=== PATIENT | female | born 1945 | race Caucasian/White ===

== ENCOUNTER 2017-08-14 14:02 | Outpatient (CLI) | payer MEDICARE, OTHER ==
[2017-08-14 14:41] LABS: #Basophils 0.1 thou/uL (0.0-0.2); #Eosinphils 0.3 thou/uL (0.0-0.7); #Lymphocytes 1.6 thou/uL (1.20-3.40); #Monocytes 0.6 thou/uL (0.11-0.59); #Neutrophils 5.4 thou/uL (1.40-6.50); %Basophils 0.8 % (0.0-1.0); %Eosinophils 4.2 % (0.0-10.0); %Lymphocytes 19.7 % (21.0-51.0); %Monocytes 6.9 % (0.0-10.0); Hematocrit 42.7 % (36.0-47.0); Mean Platelet Volume 6.6 fL (7.4-10.4); Red Blood Cell (RBC) Count 4.58 mill/uL (4.20-5.40); White Blood Cell (WBC) Count 7.9 thou/uL (4.8-10.8)
[2017-08-14 15:16] LABS: Anion Gap 11 mmol/L (10-20); BUN (Urea Nitrogen) 21 mg/dL (9.8-20.1); Calc. Creatinine Clearance 0 mL/min (70-130); Calcium 9.7 mg/dL (7.8-10.44); Carbon Dioxide 29 mmol/L (23-31); Chloride 105 mmol/L (98-107); Estimated GFR-MDRD 62
--- NOTE | 2017-08-29 13:30 | EKG ---
Test Reason : Blood Pressure : / mmHG Vent. Rate : 085 BPM Atrial Rate : 085 BPM P-R Int : 138 ms QRS Dur : 108 ms QT Int : 386 ms P-R-T Axes : 073 -02 081 degrees QTc Int : 459 ms Normal sinus rhythm Left ventricular hypertrophy with repolarization abnormality Cannot rule out Septal infarct , age undetermined Abnormal ECG Confirmed by TRICIA NOE MD ([id number]) on 08/29/2017 1:30:23 PM Referred By: STEMI Confirmed By:TRICIA NOE MD
== END 2017-08-14 14:03 | disposition home or self-care (01) ==
LOC: LABBT 14:02
PROVIDERS: ATTEND Specialist
DX: Z01.818 Encounter for other preprocedural examination (principal); A63.0 Anogenital (venereal) warts
CPT/HCPCS: 80048; 85025; 93005; 93010

== ENCOUNTER 2017-08-21 09:56 | Day surgery (SDC) | payer MEDICARE, OTHER ==
[2017-08-14 14:32] VITALS: BMI 37.1
[2017-08-21] MEDS ORDERED: cefOXitin Sodium 2 GM, Syringe 1 ML in Sterile Water 10 ML SLOW IVP SCH (10:45)
[2017-08-21] MEDS ORDERED: Acetaminophen 1,000 MG in Premix Bag 1 BAG IVPB SCH (10:45)
[2017-08-21] MEDS ORDERED: Ketorolac Tromethamine 30 MG/ML VIAL IVP SCH (10:45)
[2017-08-21] MEDS ORDERED: Ketorolac Tromethamine 30 MG/ML VIAL ONE (11:03)
[2017-08-21] MEDS ORDERED: Lidocaine 1% w/Epinephrine 1:200K 30 ML VIAL ONE (12:20)
[2017-08-21] MEDS ORDERED: Bupivacaine 0.25% HCL 30 ML VIAL ONE (12:20)
[2017-08-21] MEDS ORDERED: Midazolam HCl 2 mg/2 ml Vial ONE (12:28)
[2017-08-21] MEDS ORDERED: Fentanyl 100 MCG/2 ML VIAL ONE (12:28)
[2017-08-21] MEDS ORDERED: EPINEPHrine 1 MG/ML AMP ONE (12:56)
[2017-08-21] MEDS ORDERED: Lidocaine 1% PF 5 ML VIAL ONE (17:10)
[2017-08-21] MEDS ORDERED: Propofol 200 MG/20 ML VIAL ONE (17:10)
[2017-08-21] MEDS ORDERED: ePHEDrine/0.9% NaCl/PF SYRINGE 50 mg/10 ml ONE (17:10)
[2017-08-21] MEDS ORDERED: Ondansetron HCl/PF 4 MG/2 ML Vial ONE (17:10)
[2017-08-21] MEDS ORDERED: Dexamethasone 20 MG/5 ML VIAL ONE (17:10)
--- NOTE | 2017-08-22 03:58 | OP ---
DATE OF OPERATION: 08/21/2017 PREOPERATIVE DIAGNOSIS: Anal condyloma. POSTOPERATIVE DIAGNOSIS: Anal condyloma. PROCEDURE PERFORMED: Excision of anal condyloma. SURGEON: Sy Cantu M.D. ANESTHESIA: General with laryngeal mask airway. INDICATIONS: Patient is a 71-year-old white female. She presents with a large sessile mass to the r ight side of her anus. Biopsies of this revealed that is condyloma, although it certainly appears to be atypical. She is taken to the operating room at this time for resection of this area. DESCRIPTION OF OPERATION: Informed consent was obtained. Patient was taken to the operating room wh ere general anesthesia was obtained with the patient in supine position. She was then placed in cand y cane stirrups. Perianal area was prepped with Betadine, draped in sterile fashion. Local anesthet ic was infiltrated using 0.25% Marcaine with epinephrine. The easily visible lesion was excised usin g sharp dissection obtaining minimal borders around the lesion. Unfortunately, I had a very wide bas e encompassing a good segment of the right side of the anus. There was an area that seemed to extend also around the anterior aspect of the anus and this was included in the resection. The specimen wa s passed off the field and intact. Hemostasis was obtained using electrocautery. I then closed the wound in a somewhat stellate fashion using interrupted and running sutures of 3-0 Vicryl. The wound was closed as well as possible, although this was challenging due to the size and confirmation of the lesion. Dry gauze dressing was placed externally. Mesh pants were placed. There were no complicat ions. Patient tolerated the procedure well and was taken to recovery room in stable condition. Of n ote, due to the presence of condyloma, the smoke evacuator was used at all times when cautery was use dFilemon
== END 2017-08-21 16:01 | disposition home or self-care (01) ==
LOC: SDC 09:56
PROVIDERS: ATTEND Specialist
PROC: 0HBAXZZ Excision of Inguinal Skin, External Approach (ICD-10-PCS; principal; 2017-08-21)
DX: D01.3 Carcinoma in situ of anus and anal canal (principal); A63.0 Anogenital (venereal) warts; D49.3 Neoplasm of unspecified behavior of breast; I10 Essential (primary) hypertension; E66.9 Obesity, unspecified; Z68.37 Body mass index [BMI] 37.0-37.9, adult; Z79.899 Other long term (current) drug therapy; Z88.0 Allergy status to penicillin; Z88.2 Allergy status to sulfonamides; Z88.1 Allergy status to other antibiotic agents; Z90.710 Acquired absence of both cervix and uterus; Z98.890 Other specified postprocedural states; Z87.891 Personal history of nicotine dependence; Z92.3 Personal history of irradiation; Z92.21 Personal history of antineoplastic chemotherapy
CPT/HCPCS: 88305; A4216; J0131; J0171; J0694; J1100; J1885; J2001; J2250; J2405; J2704; J3010; S0020

== ENCOUNTER 2018-02-10 15:26 | Outpatient (CLI) | payer MEDICARE, OTHER ==
[~2018-02-10 15:26] MED LIST: Iopamidol 370 76% 100 ML VIAL ONE
--- NOTE | 2018-02-10 16:32 | CT ---
CT PELVIS WITH IV CONTRAST 02/10/18 HISTORY: Right inguinal mass. FINDINGS: Urinary bladder is unremarkable. Degenerative changes lumbar spine. No free fluid is apparent within the pelvis. Along the right inguinal canal, a predominantly cystic peripherally enhancing mass is 4.2 cm length x 3.8 x 3.5 cm. There is a thin rim of density. This most likely represents a necrotic lymph node. A similar appearing fluid center structure at the left groin is 3.2 x 2.9 x 2.4 cm greatest diameters . No other masses are apparent. IMPRESSION: Complex cystic masses at each groin, right larger than left, are favored to represent necrotic lymph nodes. Cause is not apparent. Clinical correlation regarding likelihood of infectious versus neoplast ic causes is required. Sonographic guidance could be used for percutaneous sampling if needed. POS: BEATRICE
== END 2018-02-10 15:27 | disposition home or self-care (01) ==
LOC: SCSCT 15:26
PROVIDERS: ATTEND Specialist
DX: R19.09 Other intra-abdominal and pelvic swelling, mass and lump (principal)
CPT/HCPCS: 72193

== ENCOUNTER 2018-02-18 13:20 | Outpatient (CLI) | payer MEDICARE, OTHER ==
--- NOTE | 2018-02-19 10:33 | PET ---
PET CT FROM THE SKULL BASE THROUGH THE MID THIGH: Indication: History of left sided breast cancer and squamous cell carcinoma of the anal canal. Comparison: CT pelvis, 02-10-18 and a prior PET CT, 01-03-14. Technique: Multiple PET images were obtained from the skull base through the midthigh following IV ad ministration of 12.1 mCi of F18 STG, IV. CT images were obtained for attenuation purposes only. FINDINGS: The bio distribution for the examination appears acceptable. HEAD AND NECK: No hypermetabolic lymph adenopathy or mass is identified. There is some mild activity seen within the palatine tonsils which is likely physiologic. THORAX: There are surgical clips within the left axillary region which is stable. There is scarring within th e greater aspect of the left breast which is stable. No hypermetabolic mass or lymphadenopathy is wally dent. There is some mild increased metabolic activity involving the left shoulder musculature which i s probably related to muscular contraction. This is slightly asymmetric, left greater than right. There is a 4 mm pulmonary nodule within the right lower lobe which is stable to the 2014 examination. No hyper metabolic mediastinal, hilar or axillary lymphadenopathy is evident. No hyper metabolic pul monary nodule or pleural effusion is demonstrated. ABDOMEN AND PELVIS: There is some background activity seen within the bowel and liver. There is a pathologically enlarged lymph node seen anterior to the sacral promontory measuring 1.3 cm at peak SUV with uptake of 2.0 an d a mean uptake of 1.3. There is a right perirectal lymph node measuring up to 1.5 cm with peak activ ity at 2.6 mean activity at 2.09. There are centrally necrotic, enlarged inguinal lymph nodes bilater ally, right greater than left. The largest on the right measures 4.2 cm, peak activity at 4.9. The la rgest on the left measures 2.2 cm with peak activity at 5.5. There is activity seen at the level of t he anus with peak activity of 4.35 and mean activity of 3.68, likely corresponding to patient's known anal cancer. SKIN AND OSSEOUS STRUCTURES: No hypermetabolic skin or osseous lesion is seen. IMPRESSION: Abnormal PET CT. 1. There are hypermetabolic lymph nodes seen within the perirectal and inguinal regions bilaterally s uspicious for malignant lymph node spread of disease. There is a hyper metabolic focus within the patrick s likely corresponding to patient's known squamous cell carcinoma of the anal canal. There is an enla rged lymph node just anterior to the sacral promontory which is suspicious by size. This is new from the comparison is 2014 and there is mild associated increased metabolic uptake associated with the ly mph node itself. This lymph node is also suspicious lymph node spread of disease. 2. Post-surgical and post therapy changes involving the left breast without evidence of local recurre nce within this region. 3. Stable 4 mm pulmonary nodule in the right lower lobe since 2014, likely benign. POS: BEATRICE
== END 2018-02-18 13:21 | disposition home or self-care (01) ==
LOC: PET 13:20
PROVIDERS: ATTEND Internal Medicine Hematology & Oncology
DX: C21.1 Malignant neoplasm of anal canal (principal); R91.1 Solitary pulmonary nodule; Z98.890 Other specified postprocedural states
CPT/HCPCS: 78815; A9552

== ENCOUNTER 2018-02-26 12:19 | Outpatient (CLI) | payer MEDICARE, OTHER ==
[2018-02-26 14:02] LABS: #Eosinphils 0.3 thou/uL (0.0-0.7); #Lymphocytes 1.7 thou/uL (1.20-3.40); #Monocytes 0.8 thou/uL (0.11-0.59); #Neutrophils 6.8 thou/uL (1.40-6.50); %Basophils 0.4 % (0.0-1.0); %Eosinophils 3.3 % (0.0-10.0); %Lymphocytes 17.8 % (21.0-51.0); %Monocytes 8.2 % (0.0-10.0); %Neutrophils 70.3 % (42.0-75.0); Hemoglobin 14.2 g/dL (12.0-16.0); Mean Corpuscular HGB CONC 33.8 g/dL (32.0-36.0); Mean Corpuscular Hemoglobin 30.9 pg (27.0-31.0); Mean Corpuscular Volume 91.5 fL (78.0-98.0); Mean Platelet Volume 6.9 fL (7.4-10.4); Platelet Count 319 thou/uL (130-400); Red Blood Cell (RBC) Count 4.59 mill/uL (4.20-5.40); White Blood Cell (WBC) Count 9.7 thou/uL (4.8-10.8)
[2018-02-26 14:25] LABS: Anion Gap 15 mmol/L (10-20); BUN (Urea Nitrogen) 32 mg/dL (9.8-20.1); Calc. Creatinine Clearance 0 mL/min (70-130); Calcium 9.8 mg/dL (7.8-10.44); Carbon Dioxide 28 mmol/L (23-31); Chloride 102 mmol/L (98-107); Estimated GFR-MDRD 73; Glucose 91 mg/dL (80-115); Potassium 4.5 mmol/L (3.5-5.1); Sodium 140 mmol/L (136-145)
== END 2018-02-26 12:20 | disposition home or self-care (01) ==
LOC: LABBT 12:19
PROVIDERS: ATTEND Specialist
DX: Z01.812 Encounter for preprocedural laboratory examination (principal); C79.9 Secondary malignant neoplasm of unspecified site
CPT/HCPCS: 80048; 85025

== ENCOUNTER 2018-03-01 14:19 | Day surgery (SDC) | payer MEDICARE, OTHER ==
[2018-02-26 13:07] VITALS: BMI 36.0
[2018-03-01] MEDS ORDERED: Dexamethasone 20 MG/5 ML VIAL ONE ×2 (14:41)
[2018-03-01] MEDS ORDERED: PROPOFOL 200 MG/20 ML VIAL ONE (14:41)
[2018-03-01] MEDS ORDERED: Lidocaine 1% PF 5 ML VIAL ONE (14:41)
[2018-03-01] MEDS ORDERED: cefOXitin 2 GM VIAL ONE (14:54)
[2018-03-01] MEDS ORDERED: Sodium Chloride 0.9% 100 ML ONE (14:55)
[2018-03-01] MEDS ORDERED: Ketorolac Tromethamine 30 MG/ML VIAL ONE (14:55)
[2018-03-01] MEDS ORDERED: Fentanyl 100 MCG/2 ML VIAL ONE (18:02)
[2018-03-01] MEDS ORDERED: Midazolam HCl 2 mg/2 ml Vial ONE (18:02)
[2018-03-01] MEDS ORDERED: Lidocaine 1% w/Epinephrine 1:100K 30 ML VIAL ONE (18:05)
[2018-03-01] MEDS ORDERED: Lidocaine 2% Jelly 5 ML TUBE ONE (18:05)
[2018-03-01] MEDS ORDERED: Bupivacaine/Epinephrine 0.25% 30 ML VIAL ONE ×2 (18:05→19:18)
--- NOTE | 2018-03-01 21:01 | RAD ---
CHEST ONE VIEW: HISTORY: Mediport insertion. COMPARISON: PET CT from 02/18/2018. FINDINGS: Port catheter is in place with the tip in the inferior SVC in good position. Lungs without focal air space consolidation, pneumothorax, or effusion. IMPRESSION: Uncomplicated placement of port catheter. POS: SAUL
--- NOTE | 2018-03-02 13:36 | OP ---
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 OPERATIONS PERFORMED: Placement of a right subclavian power compatible regular size MediPort, rectal examination under anesthesia with anal canal biopsy x2. SURGEON: Sy Cantu M.D. ANESTHESIA: General endotracheal. INDICATIONS: Patient is a 72-year-old white female. She was recently evaluated in regards to a palp able right inguinal mass. Aspiration of this revealed findings consistent with a squamous cell carci noma. There was an additional enlarged lymph node with liquefaction in the left groin as well. This was not biopsied, but it is assumed to be the same diagnosis. She has undergone gynecologic evaluat ion and PET scan. The PET scan only indicates areas of lymph node metastasis and an apparent origin at the level of the anus. Patient does have a history of excision of a condyloma from the anus withi n the last year, but there was no evidence of invasive carcinoma at that time. She is taken to the o perating room at this time for placement of a MediPort for chemotherapy as well as rectal examination under anesthesia to better evaluate this area (although there is no abnormality that is visible or p alpable upon routine rectal examination my office). DESCRIPTION OF PROCEDURE: Informed consent was obtained. The patient taken to the operating room wh ere general endotracheal anesthesia obtained with the patient in supine position. Attention was turn ed first to her port. Bilateral upper chest was prepped with ChloraPrep and draped in sterile fashio n. Local anesthetic was infiltrated using 0.25% Marcaine with epinephrine. Large gauge needle was p assed under the clavicle in the subclavian vein. Guidewire was passed through the needle and fluoros copically confirmed to enter the superior vena cava. Additional local anesthetic was infiltrated and transverse incision was created based on needle insertion site. The patient had a prior MediPort in the same area and some of the dissection was through some scar tissue. Introducer dilator was passe d over the guidewire under fluoroscopic guidance. The guidewire and dilator were removed and the cat heter was passed through the introducer. Introducer was removed in the usual peel-apart fashion. Th e catheter was positioned with the tip at the atrial caval junction. The catheter was divided at linh ropriate length and secured to the locking hub of the MediPort. The port was secured to pectoral fas kenya with 2 interrupted sutures of 3-0 Prolene. The incision was then closed in layers with 3-0 and 4 -0 Monocryl. The port aspirated blood freely and was flushed with heparinized saline. Dermabond was placed externally over the incision. Final fluoroscopic images indicated appropriate positioning of the port and catheter. Attention was turned to the rectal examination. The patient was placed in d orsal lithotomy using candycane stirrups. The perianal area was prepped with Betadine and draped in sterile fashion. Local anesthetic was infiltrated using 0.25% Marcaine with epinephrine in a 4 quadr ant intersphincteric fashion. As I began to evaluate the area, there was noted to be a palpable mass in the peritoneum. I was suspicious that this might be a hematoma from the local anesthetic I just injected but could not be certain. I therefore made a small incision in this area and confirmed that there was no underlying induration and hat this was in fact a small hematoma. Hemostasis obtained w ith cautery and the wound was closed with a couple of interrupted sutures of 3-0 chromic suture. Attention was then turned to the anal canal and distal rectum. I meticulously inspected this area wi th both visualization and palpation. The condyloma had been removed from the right side of the anal canal, almost entirely externally. There was minimal scar tissue left from this. I biopsied an area of the anal canal skin that did not have an irregular appearance in this area at the 9 o'clock radia n. There was a tiny area of minimal protrusion at about 10 o'clock or 10:30 radian. Also, within th e anal canal and although this did not have a worrisome appearance at all, I biopsied this. Both bio psy sites were also closed with 3-0 chromic suture. Hemostasis was maintained with electrocautery. I examined all other areas and found no area of visible or palpable abnormality. Gelfoam was placed within the anus. Dry gauze dressing and mesh pants were placed externally. There were no complicati ons. The patient tolerated the procedure well and was taken to recovery room in stable condition.
== END 2018-03-01 21:15 | disposition home or self-care (01) ==
LOC: SDC 14:19
PROVIDERS: ATTEND Specialist
PROC: 0JH63WZ Insertion of Totally Implantable Vascular Access Device into Chest Subcutaneous Tissue and Fascia, Percutaneous Approach (ICD-10-PCS; principal; 2018-03-01)
PROC: 0DBQ7ZX Excision of Anus, Via Natural or Artificial Opening, Diagnostic (ICD-10-PCS; 2018-03-01)
DX: K62.89 Other specified diseases of anus and rectum (principal); C80.1 Malignant (primary) neoplasm, unspecified; C77.4 Secondary and unspecified malignant neoplasm of inguinal and lower limb lymph nodes; M81.0 Age-related osteoporosis without current pathological fracture; Z85.3 Personal history of malignant neoplasm of breast; Z87.891 Personal history of nicotine dependence; Z79.2 Long term (current) use of antibiotics; Z79.811 Long term (current) use of aromatase inhibitors; Z79.899 Other long term (current) drug therapy; Z88.0 Allergy status to penicillin; Z88.2 Allergy status to sulfonamides; Z88.1 Allergy status to other antibiotic agents
CPT/HCPCS: 36561; 46999; 71045; 88305; C1788; J0694; J1100; J1642; J1885; J2001; J2250; J2704; J3010; J7050

== ENCOUNTER 2018-06-01 12:09 | Outpatient (CLI) | payer MEDICARE, OTHER ==
--- NOTE | 2018-06-01 18:12 | PET ---
PET CT: 06/01/18 HISTORY: 72-year-old female with squamous cell carcinoma of the anus and left sided breast cancer. Last chemo and radiation therapy was in 04/26/18. The exam is requested for restaging. TECHNIQUE: PET scan with CT attenuation correction was performed from the base of the brain to the proximal thig hs following the intravenous administration of 11 millicuries of 15-Fluorodeoxyglucose in the left an tecubital fossa. Imaging was performed after an uptake interval of 45 minutes. COMPARISON: PET CT dated 02/18/18. FINDINGS: No malcom hypermetabolism is seen in the neck, chest, axilla, abdomen, pelvis or inguinal regions. No hypermetabolic lung nodules, liver, adrenal or skeletal lesions are identified. There is increased uptake in the region of the anus with an SUV of 4.5 which is essentially stable si nce the last exam. No abnormal foci of FDG localization is seen. The CT scan used for attenuation correction demonstrates no evidence of pleural effusions or ascites. The nonhypermetabolic enlarged bilateral inguinal lymph nodes are stable. Necrotic inguinal lymph no crissy are stable. IMPRESSION: 1. No evidence of metastatic disease. 2. Stable hypermetabolic activity in the region of the anus. POS: BEATRICE
== END 2018-06-01 12:10 | disposition home or self-care (01) ==
LOC: PET 12:09
PROVIDERS: ATTEND Internal Medicine Hematology & Oncology
DX: C21.1 Malignant neoplasm of anal canal (principal); C50.919 Malignant neoplasm of unspecified site of unspecified female breast
CPT/HCPCS: 78815; A9552

== ENCOUNTER 2018-07-14 09:58 | Outpatient (CLI) | payer MEDICARE, OTHER ==
--- NOTE | 2018-07-14 12:25 | BD ---
DEXA BONE DENSITY SCAN: 07/14/2018 HISTORY: A 72-year-old postmenopausal female, undergoing screening for osteoporosis. COMPARISON: None available. LUMBAR SPINE BMD (g/cm2) T-SCORE L1 0.932 -0.50 L2 1.008 -0.2 L3 0.786 -2.7 L4 0.702 -3.3 TOTAL 0.852 -1.8 FEMORAL NECK: 0.537 -2.8 TOTAL PROXIMAL FEMUR: 0.713 -1.9 The FRAX-WHO Fracture Risk Assessment is not reported, as some T-scores are at or below -2.5, and the patient is being treated for osteoporosis. IMPRESSION: 1. Osteopenia within the lumbar spine, correlating with a moderately increased risk for fracture. 2. Femoral neck osteoporosis, correlating with a high associated risk for fracture. POS: BEATRICE
== END 2018-07-14 09:59 | disposition home or self-care (01) ==
LOC: BICMAMMO 09:58
PROVIDERS: ATTEND Internal Medicine Hematology & Oncology
DX: Z12.31 Encounter for screening mammogram for malignant neoplasm of breast (principal); M85.88 Other specified disorders of bone density and structure, other site; C50.412 Malignant neoplasm of upper-outer quadrant of left female breast; M81.0 Age-related osteoporosis without current pathological fracture; Z80.3 Family history of malignant neoplasm of breast
CPT/HCPCS: 77063; 77067; 77080

== ENCOUNTER 2018-09-10 08:29 | Outpatient (CLI) | payer MEDICARE, OTHER ==
--- NOTE | 2018-09-10 11:16 | CT ---
CT OF THE ABDOMEN AND PELVIS WITH IV CONTRAST: DATE: 09/10/2018. PROVIDED CLINICAL HISTORY: Anal cancer and incontinence. FINDINGS: Comparison is made with the study dated 02/10/2018 and PET examination of 06/01/2018. There is a stabl e right lower lobe noncalcified pulmonary nodule. The liver, spleen, pancreas, kidneys, and adrenal glands demonstrate an unremarkable CT appearance. The previously described inguinal lymph nodes have markedly decreased in size, measuring about 11 mm in greatest short axis on the right and about 9 mm on the left. No perirectal lymph nodes are seen. There is perirectal fat stranding presumably reflecting radiation change. There is no bowel dilatation. Presacral lymph node left of midline measures about 8 mm in short axis , slightly decreased with respect to prior examination. There is no evidence for new lymph node enla rgement. No free fluid or bowel dilatation apparent. The regional bowel demonstrates a normal CT appearance. IMPRESSION: 1. Interval decrease in pelvic lymph node enlargement. 2. Perirectal fat stranding presumably reflecting radiation change. POS: BEATRICE
== END 2018-09-10 08:30 | disposition home or self-care (01) ==
LOC: SCSCT 08:29
PROVIDERS: ATTEND Internal Medicine Hematology & Oncology
DX: C21.1 Malignant neoplasm of anal canal (principal); R15.9 Full incontinence of feces
CPT/HCPCS: 74177

== ENCOUNTER 2018-09-16 10:44 | Outpatient (CLI) | payer MEDICARE, OTHER ==
[2018-09-16] MEDS ORDERED: Iopamidol 300 61% 50 ML VIAL FS ONE (11:29)
--- NOTE | 2018-09-16 14:21 | RAD ---
MEDIPORT CHEST: HISTORY: Suboptimally functioning MediPort. RADIATION DOSIMETRY: 0.6 minutes of fluoroscopy and DAP of 1.16 mGy*^m2. FINDINGS: A studio hand radiograph demonstrates a right subclavian MediPort catheter. The right MediPort was prepped and draped by the hospital nurse and the port was accessed using a Hub er needle. Approximately 3 mL of sterile iodinated Isovue 300 was injected into the MediPort cathete r. There is extravasation of contrast outside of the catheter lumen in the region of the catheter ad jacent to and inferior to the right clavicle. There is tracking of contrast along the track of the c atheter external to the catheter lumen and wall suggesting leakage of contrast outside of the cathete r. These findings suggest a fractured catheter with nonfunction. IMPRESSION: Extravasation of injected contrast outside of the catheter lumen suggesting a fracture within the cat heter and extravasation of injected material. This catheter should not be used for chemotherapeutic purposes. POS: BEATRICE
== END 2018-09-16 10:45 | disposition home or self-care (01) ==
LOC: RAD 10:44
PROVIDERS: ATTEND Internal Medicine Hematology & Oncology
DX: T82.848A Pain due to vascular prosthetic devices, implants and grafts, initial encounter (principal); C21.1 Malignant neoplasm of anal canal; C50.412 Malignant neoplasm of upper-outer quadrant of left female breast; M81.0 Age-related osteoporosis without current pathological fracture
CPT/HCPCS: 36598; J1642

== ENCOUNTER 2019-07-15 09:47 | Outpatient (CLI) | payer MEDICARE, OTHER ==
--- NOTE | 2019-07-15 11:43 | MMO ---
Bilateral MAMMO Bilat Screen [facility]. CLINICAL HISTORY: Patient is 73 years old and is seen for screening. The patient has the following family history of breast cancer: mother, at age 68, malignant (generic), THEN AGAIN @ 84 and maternal grandmother, malignant (generic). The patient has a history of colon cancer in 2018; lumpectomy procedure revealed invasive ductal left breast carcinoma in March,; Ultrasound guided core biopsy procedure revealed invasive ductal left breast carcinoma in February, and malignant (generic) in the left breast in 2011. The patient has a history of left Ultrasound Guided Core Biopsy in February,, left Lumpectomy in 2011 - malignant and right Excisional Biopsy at age 47 - benign - 2 biopsies. VIEWS: The views performed were: bilateral craniocaudal with tomosynthesis and bilateral mediolateral oblique with tomosynthesis. FILMS COMPARED: The present examination has been compared to prior imaging studies performed at [facility] on 06/29/2015, 07/07/2016, 07/09/2017 and 07/14/2018. This study has been interpreted with the assistance of computer-aided detection. MAMMOGRAM FINDINGS: There are scattered fibroglandular densities. There is a stable post-surgical scar seen in the left breast. There are no suspicious masses, calcifications or areas of architectural distortion. There are no suspicious masses, suspicious calcifications, or new areas of architectural distortion. IMPRESSION: THERE IS NO MAMMOGRAPHIC EVIDENCE OF MALIGNANCY. A ROUTINE FOLLOW-UP MAMMOGRAM IN 1 YEAR IS RECOMMENDED. THE RESULTS OF THIS EXAM WERE SENT TO THE PATIENT. ACR BI-RADS Category 2 - Benign finding MAMMOGRAPHY NOTE: 1. A negative mammogram report should not delay a biopsy if a dominant of clinically suspicious mass is present. 2. Approximately 10% to 15% of breast cancers are not detected by mammography. 3. Adenosis and dense breasts may obscure an underlying neoplasm. Reported by: MARVIN LABOY MD Electonically Signed: [id number]
== END 2019-07-15 09:48 | disposition home or self-care (01) ==
LOC: BICMAMMO 09:47
PROVIDERS: ATTEND Internal Medicine Hematology & Oncology
DX: Z12.31 Encounter for screening mammogram for malignant neoplasm of breast (principal); Z85.038 Personal history of other malignant neoplasm of large intestine; Z85.3 Personal history of malignant neoplasm of breast; Z80.3 Family history of malignant neoplasm of breast
CPT/HCPCS: 77063; 77067

== ENCOUNTER 2019-10-14 09:23 | Outpatient (CLI) | payer MEDICARE, OTHER ==
--- NOTE | 2019-10-14 14:14 | NM ---
WHOLE BODY BONE SCAN: HISTORY: Squamous of carcinoma of the anus. Malignant neoplasm of the upper outer quadrant of the lef t female breast RADIOPHARMACEUTICAL: 31.7 mCi technetium 99m-MDP injected intravenously COMPARISON: None CORRELATION: CT abdomen pelvis dated 09/10/2018 FINDINGS: Increased uptake in the shoulders, elbows, wrists, knees, ankles and feet is consistent with degenera tive changes. There is increased uptake to the left of midline in the mid lumbar spine corresponding to the degenerative changes seen on the CT scan. No other abnormal areas of tracer localization are seen in the skeleton to suggest metastatic disease . Tracer excretion through the kidneys is within normal limits. IMPRESSION: No scintigraphic evidence of osseous metastatic disease.
== END 2019-10-14 09:24 | disposition home or self-care (01) ==
LOC: NM 09:23
PROVIDERS: ATTEND Nurse Practitioner Acute Care
DX: C50.412 Malignant neoplasm of upper-outer quadrant of left female breast (principal); C21.1 Malignant neoplasm of anal canal; M25.50 Pain in unspecified joint
CPT/HCPCS: 78306; A9503

== ENCOUNTER 2020-07-18 09:41 | Outpatient (CLI) | payer MEDICARE, OTHER ==
--- NOTE | 2020-07-18 10:45 | MMO ---
Bilateral MAMMO Bilat Diag [facility]. CLINICAL HISTORY: Patient is 74 years old and is seen for diagnostic exam and palpable abnormality in the left breast. The patient has the following family history of breast cancer: mother, at age 68, malignant (generic), THEN AGAIN @ 84 and maternal grandmother, malignant (generic). The patient has a history of colon cancer in 2018; lumpectomy procedure revealed invasive ductal left breast carcinoma in March,; Ultrasound guided core biopsy procedure revealed invasive ductal left breast carcinoma in February, and malignant (generic) in the left breast in 2011. The patient has a history of left Ultrasound Guided Core Biopsy in February,, left Lumpectomy in 2011 - malignant and right Excisional Biopsy at age 47 - benign - 2 biopsies. VIEWS: The views performed were: bilateral craniocaudal with tomosynthesis; bilateral mediolateral oblique with tomosynthesis; and bilateral mediolateral with tomosynthesis. FILMS COMPARED: The present examination has been compared to prior imaging studies performed at [facility] on 07/09/2017, 07/14/2018, 07/15/2019 and 07/18/2020. This study has been interpreted with the assistance of computer-aided detection. MAMMOGRAM FINDINGS: There are scattered fibroglandular densities. Finding 1: There is an area of architectural distortion with associated post-surgical scar seen in the left breast. Finding 2: There are stable benign appearing calcifications seen in both breasts. There are also vascular calcifications. There are no suspicious masses, suspicious calcifications, or new areas of architectural distortion. IMPRESSION: THERE IS NO MAMMOGRAPHIC EVIDENCE OF MALIGNANCY. A ROUTINE FOLLOW-UP MAMMOGRAM IN 1 YEAR IS RECOMMENDED. THE RESULTS OF THIS EXAM WERE SENT TO THE PATIENT. ACR BI-RADS Category 2 - Benign finding MAMMOGRAPHY NOTE: 1. A negative mammogram report should not delay a biopsy if a dominant of clinically suspicious mass is present. 2. Approximately 10% to 15% of breast cancers are not detected by mammography. 3. Adenosis and dense breasts may obscure an underlying neoplasm. Reported by: ANGEL WOODS MD Electonically Signed: [id number]
--- NOTE | 2020-07-18 10:50 | ULT ---
US Breast Limited Lt: 07/18/2020 12:00 AM CLINICAL INDICATION: Palpable mass at the 10:00 position of the left breast. COMPARISON: Mammograms 07/18/2020, 07/15/2019 TECHNIQUE: Multiplanar grayscale and color Doppler images were obtained of the breast. FINDINGS: Normal appearing parenchyma is seen. Real-time imaging shows a palpable abnormality to represent a ri dge of normal breast tissue. No suspicious mass is seen. No suspicious shadowing is seen. No cyst is identified. IMPRESSION: BI-RADS Category 2-benign findings.
--- NOTE | 2020-07-18 11:50 | BD ---
BONE DENSITOMETRY: INDICATION: Postmenopausal screening. FINDINGS: Lumbar Spine: BMD (g/cm2) L1 0.952 T-Score: -0.3 L2 1.047 T-Score: 0.2 L3 0.852 T-Score: -2.1 L4 0.731 T-Score: -3.0 L1-L4 0.893 T-Score: -1.4 Total lumbar density 07/14/2018: 0.852. Femoral Neck: 0.520 T-Score: -3.0 Total Femur: 0.693 T-Score: -2.0 Total femur density 07/14/2018: 0.713. Impression: 1. Bone mineral density of the femoral neck indicates osteoporosis. 2. Bone mineral density of the lumbar spine indicates osteopenia. POS: [facility]
== END 2020-07-18 09:42 | disposition home or self-care (01) ==
LOC: BICMAMMO 09:41
PROVIDERS: ATTEND Internal Medicine Hematology & Oncology
DX: Z13.820 Encounter for screening for osteoporosis (principal); Z08 Encounter for follow-up examination after completed treatment for malignant neoplasm; Z85.3 Personal history of malignant neoplasm of breast; Z78.0 Asymptomatic menopausal state; M81.0 Age-related osteoporosis without current pathological fracture; M85.88 Other specified disorders of bone density and structure, other site
CPT/HCPCS: 76642; 77066; 77080; G0279

== ENCOUNTER 2021-07-22 10:04 | Outpatient (CLI) | payer MEDICARE, OTHER | END 2021-07-22 10:05 | disposition home or self-care (01) | LOC: BICMAMMO 10:04 | PROVIDERS: ATTEND Internal Medicine Hematology & Oncology | DX: Z12.31 Encounter for screening mammogram for malignant neoplasm of breast (principal); M81.0 Age-related osteoporosis without current pathological fracture; Z80.3 Family history of malignant neoplasm of breast; Z85.038 Personal history of other malignant neoplasm of large intestine; Z85.3 Personal history of malignant neoplasm of breast; Z98.890 Other specified postprocedural states | CPT/HCPCS: 77063; 77067; 77080 ==

== ENCOUNTER 2022-09-25 11:24 | Outpatient (CLI) | payer MEDICARE, OTHER | END 2022-09-25 11:25 | disposition home or self-care (01) | LOC: BICMAMMO 11:24 | PROVIDERS: ATTEND Internal Medicine Hematology & Oncology | DX: Z12.31 Encounter for screening mammogram for malignant neoplasm of breast (principal); M81.0 Age-related osteoporosis without current pathological fracture; M85.88 Other specified disorders of bone density and structure, other site; Z98.890 Other specified postprocedural states; Z85.038 Personal history of other malignant neoplasm of large intestine; Z85.828 Personal history of other malignant neoplasm of skin; Z85.3 Personal history of malignant neoplasm of breast | CPT/HCPCS: 77063; 77067; 77080 ==

== ENCOUNTER 2025-03-16 05:48 | Day surgery (SDC) | payer MEDICARE, OTHER ==
[2025-03-15 11:07] VITALS: BMI 31.1
[2025-03-16 06:28] LABS: %Neutrophils 74.5 % (42.0-75.0); Hematocrit 35.6 % (36.0-47.0); Hemoglobin 10.9 g/dL (12.0-16.0); Mean Corpuscular Hemoglobin 28.2 pg (27.0-31.0); Mean Corpuscular Volume 92.2 fL (78.0-98.0); Platelet Count 234 10x3/uL (130-400); Red Blood Cell (RBC) Count 3.86 mill/uL (4.20-5.40); White Blood Cell (WBC) Count 6.79 10x3/uL (4.8-10.8)
[2025-03-16 06:29] LABS: #Basophils Less than 0.03 10x3/uL (0.0-0.2); #Eosinophils 0.23 10x3/uL (0.0-0.7); #Monocytes 0.96 10x3/uL (0.11-0.59); #Neutrophils 5.06 10x3/uL (1.40-6.50); %Basophils 0.3 % (0.0-1.0); %Eosinophils 3.4 % (0.0-10.0); %Lymphocytes 7.1 % (21.0-51.0); %Monocytes 14.1 % (0.0-10.0)
[2025-03-16 06:44] LABS: Anion Gap 13 mmol/L (10-20); BUN (Urea Nitrogen) 36 mg/dL (9.8-20.1); Calc. Creatinine Clearance 33 mL/min (70-130); Calcium 9.2 mg/dL (7.8-10.44); Carbon Dioxide 27 mmol/L (23-31); Chloride 103 mmol/L (98-107); Glucose 94 mg/dL (83-110); Potassium 4.4 mmol/L (3.5-5.1); Sodium 139 mmol/L (136-145)
[2025-03-16] MEDS ORDERED: PROPOFOL 200 MG/20 ML VIAL ONE (08:49)
== END 2025-03-16 10:06 | disposition home or self-care (01) ==
LOC: SDC 05:48
PROVIDERS: ATTEND Internal Medicine Cardiovascular Disease
PROC: B24CZZ4 Ultrasonography of Pericardium, Transesophageal (ICD-10-PCS; principal; 2025-03-16)
DX: I08.1 Rheumatic disorders of both mitral and tricuspid valves (principal); I48.0 Paroxysmal atrial fibrillation; Z79.01 Long term (current) use of anticoagulants; Z79.82 Long term (current) use of aspirin; Z88.0 Allergy status to penicillin; Z88.2 Allergy status to sulfonamides; Z88.1 Allergy status to other antibiotic agents; Z88.8 Allergy status to other drugs, medicaments and biological substances
CPT/HCPCS: 80048; 85025; 93005; 93312; J2704; 36415; 93010